=== PATIENT | male | born 1955 | race Caucasian/White ===

== ENCOUNTER → 2017-08-08 15:00 | Outpatient (CLI) | payer BC, SELFPAY ==
[2017-08-08 17:33] LABS: Mean Corp Hgb Conc 33.3 g/gl (32-36); Mean Corpuscular Volume 90.1 fL (80-94); Mean Platelet Vol. 10.7 fl (6.2-12.0); Platelet Count 244 K/mm3 (150-450); RBC Distribution Width CV 13.1 % (11.6-14.6); RBC Distribution Width SD 42.8 fl (35.1-43.9); Red Blood Count 4.66 M/mm3 (4.6-6.2); White Blood Count 5.8 K/mm3 (4.4-11.0)
[2017-08-08 17:58] LABS: ALB/GLOB Ratio 1.3 RATIO (0.9-2.4); AST(SGOT) 16 U/L (15-37); Alanine Aminotransfer ALT/SGPT 12 U/L (16-61); Albumin, Serum 3.9 g/dL (3.2-5.0); Alkaline Phosphatase 55 U/L (45-117); Anion Gap 7 (5-15); BUN 18 mg/dL (7-18); BUN/Creat Ratio 15.5 RATIO (10-20); Chloride 106 mmol/L (98-107); Creatinine, Serum 1.16 mg/dL (0.70-1.30); EST Glomerular Filtration Rate 68 mL/min (>60); Est Glom Filt Rate - Afr Amer 82 mL/min (>60); Globulin 2.9 g/dL (2.2-4.2); Glucose 91 mg/dL (74-106); Potassium 4.2 mmol/L (3.5-5.1); Protein, Total 6.8 g/dL (6.4-8.2); Sodium Level 139 mmol/L (136-145)
[2017-08-08 18:03] LABS: Scan Indicated on CBC? Y/N NO
== END ==
PROVIDERS: Family Provider Nurse Practitioner; PCP Nurse Practitioner
DX: G47.419 Narcolepsy without cataplexy (principal); Z79.899 Other long term (current) drug therapy
CPT/HCPCS: 36415; 80053; 85027

== ENCOUNTER 2018-04-03 19:12 | Emergency (ER) | payer BC, SELFPAY ==
--- NOTE | 2018-04-03 18:56 | RAD_ITS ---
STUDY: X-RAY - UNILATERAL RIBS ( LEFT ) WITH CHEST REASON FOR EXAM: Male, 63 years old. Trauma. Left-sided pain. TECHNIQUE - RIBS: 4 view(s) of the ribs. TECHNIQUE - CHEST: Frontal view COMPARISON: 03/29/2016 FINDINGS - RIBS: There are no displaced rib fractures identified. FINDINGS - CHEST: The lungs are clear. There are no pleural effusions. There is no pneumothorax. The heart is normal in size. RAD/Ribs Uni Min 3V w/PA Chest IMPRESSION: RIBS: No displaced rib fracture identified. CHEST: Clear lungs. Electronically Signed: Je Trent, at 20:38 EST Tel , Service support ,
[2018-04-03 19:13] VITALS: BP 119/88; PULSE 80; RESP 16; TEMP 37; O2SAT 99; BMI 28.8
--- NOTE | 2018-04-03 19:51 | RAD_ITS ---
STUDY: X-RAY - LEFT SHOULDER REASON FOR EXAM: Male, 63 years old. Trauma. Pain. TECHNIQUE: 4 view(s) of the shoulder. COMPARISON: None. FINDINGS: There is widening of the coracoclavicular distance, measuring 2.2 cm, and widening of the acromioclavicular distance, measuring 9 mm. There is no evidence of fracture in the left shoulder. There are mild degenerative changes. There are no radiodense foreign bodies. RAD/Shoulder min 2 Views IMPRESSION: Widening of the coracoclavicular an acromioclavicular distance, consistent with shoulder separation. No fracture in the left shoulder. Mild degenerative changes. Electronically Signed: Je Trent, at 20:43 EST Tel , Service support ,
--- NOTE | 2018-04-03 20:16 | ED.VISSUMM ---
- ER Visit Summary Date of Service: 04/03/18 Chief Complaint: Left shoulder injury History of Present Illness: The patient is a 63 M who was skiing today when he crashed and injured his left shoulder. He points to the top and posterior aspect of his left shoulder as well as over the left chest wall. He denies shortness of breath. He denies head injury or neck pain. Physical Examination: Vital signs unremarkable. Patient sitting upright in bed no acute distress. Head neck examination is unremarkable. No C-spine tenderness. Heart is regular rate and rhythm. Lung sounds are clear. Abdomen is soft nontender. Extremity examination was reproducible tenderness over the left shoulder, worse along the AC joint. He has increased pain with left upper extremity movement. He has strong distal pulses with no focal tenderness over the mid humerus or distal. Test Results: Rib series with chest x-ray shows no displaced rib fractures. Lungs are clear. Left shoulder x-rays reveal widening of the coracoclavicular and the acromioclavicular distance consistent with AC separation. No evidence of fracture. Emergency Department Course and Treatment: Test results are discussed with the patient. He is placed in a sling. He wishes only to take Aleve at home for pain. He will follow-up with orthopedics. Treatment Plan: [] Disposition: Discharge Impression: Left AC joint separation This note was generated with [employer] dictation software. It may contain incorrect words, spelling, and punctuation that were not noted in review of the chart prior to signing ED Disposition - Plan for ED Patient: Disposition: Home or Assisted Living Chief Complaint: Upper Extremity Injury Instructions: ED Sprain AC Joint Referrals: René Hernandez MD [STAFF PHYSICIAN] - 1-2 Weeks Cecille Rodriguez NP-C [Primary Care Provider] -
--- NOTE | 2018-04-03 20:16 | ED.DEP ---
ED Disposition - Plan for ED Patient: Disposition: Home or Assisted Living Chief Complaint: Upper Extremity Injury Instructions: ED Sprain AC Joint Referrals: Cecille Rodriguez NP-C [Primary Care Provider] - René Hernandez MD [STAFF PHYSICIAN] - 1-2 Weeks
[2018-04-03 20:51] VITALS: PULSE 81; RESP 20
--- OUTSIDE RECORDS SUMMARY | 2018-06-05 23:40 | XMS RPT_ITS ---
:1955 Author Organization [facility] Care Team Providers Name Role Phone Cecille Rodriguez Primary Care Unavailable Jenise Greco Attending Unavailable DORIS ZHAO Attending Unavailable DORIS ZHAO Referring Unavailable [facility] Primary [facility] Unavailable PROBLEMS PROBLEMS DATE TYPE CONDITION / CODE ATTENDING STATUS SOURCE 08/08/2017 Unknown Z79.899 - Other DORIS ZHAO Active [facility] (current) [facility] Hospital therapy / Repository Z79.899(ICD-10) PROCEDURES PROCEDURES No Procedure Records FoundRESULTS RESULTS EMERGENCY DEPARTMENT Observed: 04/04/2018 Status: F Source: [place] SUMMARY 2:44 PM [facility] REPOSITORY [facility] Medical Records Department [address] [place] [address] Emergency Department Summary 04/03/182015 MR#: [id number] Acct: [id number] Name: TERESA GARSIA Rep #: [id number] : 1955 63 From: Jenise Greco MD PCP: Cecille Rodriguez NP Status: DEP ER - ER Visit Summary Date of Service: 04/03/18 Chief Complaint: Left shoulder injury History of Present Illness: The patient is a 63 M who was skiing today when he crashed and injured his left shoulder. He points to the top and posterior aspect of his left shoulder as well as over the left chest wall. He denies shortness of breath. He denies head injury or neck pain. Physical Examination: Vital signs unremarkable. Patient sitting upright in bed no acute distress. Head neck examination is unremarkable. No C-spine tenderness. Heart is regular rate and rhythm. Lung sounds are clear. Abdomen is soft nontender. Extremity examination was reproducible tenderness over the left shoulder, worse along the AC joint. He has increased pain with left upper extremity movement. He has strong distal pulses with no focal tenderness over the mid humerus or distal. Test Results: Rib series with chest x-ray shows no displaced rib fractures. Lungs are clear. Left shoulder x-rays reveal widening of the coracoclavicular and the acromioclavicular distance consistent with AC separation. No evidence of fracture. Emergency Department Course and Treatment: Test results are discussed with the patient. He is placed in a sling. He wishes only to take Aleve at home for pain. He will follow-up with orthopedics. Treatment Plan: [] Disposition: Discharge Impression: Left AC joint separation This note was generated with [employer] dictation software. It may contain incorrect words, spelling, and punctuation that were not noted in review of the chart prior to signing ED Disposition - Plan for ED Patient: Disposition: Home or Assisted Living Chief Complaint: Upper Extremity Injury Instructions: ED Sprain AC Joint Referrals: René Hernandez MD [STAFF PHYSICIAN] - 1-2 Weeks Cecille Rodriguez NP-C [Primary Care Provider] - What to do if you have Problems For any increased pain, shortness of breath, bleeding, nausea or vomiting, chest pain, or any unexpected problems, contact your Primary Care Provider. Call [facility] ([phone]) or report to the closest Emergency Room. Call 911 if necessary. 04/04/18 1444 <Electronically signed by Jenise Greco MD> Date Jenise Greco MD Cosigner Signature (If Indicated): Date CC: Cecille Rodriguez NP DISCHARGE INSTRUCTION Observed: 04/03/2018 Status: F Source: [place] 8:17 PM [facility] REPOSITORY [facility] Medical Records Department [address] [place] [address] Discharge Instruction 04/03/182015 MR#: [id number] Acct: [id number] Name: TERESA GARSIA Rep #: [id number] : 1955 63 From: Jenise Greco MD PCP: Cecille Rodriguez NP Status: PRE ER ED Disposition - Plan for ED Patient: Disposition: Home or Assisted Living Chief Complaint: Upper Extremity Injury Instructions: ED Sprain AC Joint Referrals: Cecille Rodriguez, TOO-C [Primary Care Provider] - René Hernandez MD [STAFF PHYSICIAN] - 1-2 Weeks What to do if you have Problems For any increased pain, shortness of breath, bleeding, nausea or vomiting, chest pain, or any unexpected problems, contact your Primary Care Provider. Call [facility] ([phone]) or report to the closest Emergency Room. Call 911 if necessary. 04/03/18 2017 <Electronically signed by Jenise Greco MD> Date Jenise Greco MD Cosigner Signature (If Indicated): Date CC: Cecille Rodriguez NP RIBS UNI MIN 3V Observed: 04/03/2018 Status: F Source: [place] W/PA CHEST 7:52 PM [facility] REPOSITORY [facility] Imaging Services [address] [place] [address] Ribs Uni Min 3V w/PA Chest MR#: [id number] Acct: [id number] Name: TERESA GARSIA Rep #: [id number] : 1955 M 63 From: Je Trent MD PCP: Cecille Rodriguez NP Status: REG ER Study: Ribs Uni Min 3V w/PA Chest Date of Exam: 04/03/18 Exam# [id number] Ordering Dr: Jenise Greco MD STUDY: X-RAY - UNILATERAL RIBS ( LEFT ) WITH CHEST REASON FOR EXAM: Male, 63 years old. Trauma. Left-sided pain. TECHNIQUE - RIBS: 4 view(s) of the ribs. TECHNIQUE - CHEST: Frontal view COMPARISON: 03/29/2016 FINDINGS - RIBS: There are no displaced rib fractures identified. FINDINGS - CHEST: The lungs are clear. There are no pleural effusions. There is no pneumothorax. The heart is normal in size. RAD/Ribs Uni Min 3V w/PA Chest IMPRESSION: RIBS: No displaced rib fracture identified. CHEST: Clear lungs. Electronically Signed: Je Trent, at 20:38 EST Tel , Service support , CC: Cecille Rodriguez NP; Jenise Greco MD Housing Officer: Signed SHOULDER MIN 2 VIEWS Observed: 04/03/2018 Status: F Source: [place] 7:52 PM [facility] REPOSITORY [facility] Imaging Services [address] [place] [address] Shoulder min 2 Views MR#: [id number] Acct: [id number] Name: TERESA GARSIA Rep #: [id number] : 1955 63 From: Je Trent MD PCP: Cecille Rodriguez NP Status: REG ER Study: Shoulder min 2 Views Date of Exam: 04/03/18 Exam# [id number] Ordering Dr: Jenise Greco MD STUDY: X-RAY - LEFT SHOULDER REASON FOR EXAM: Male, 63 years old. Trauma. Pain. TECHNIQUE: 4 view(s) of the shoulder. COMPARISON: None. FINDINGS: There is widening of the coracoclavicular distance, measuring 2.2 cm, and widening of the acromioclavicular distance, measuring 9 mm. There is no evidence of fracture in the left shoulder. There are mild degenerative changes. There are no radiodense foreign bodies. RAD/Shoulder min 2 Views IMPRESSION: Widening of the coracoclavicular an acromioclavicular distance, consistent with shoulder separation. No fracture in the left shoulder. Mild degenerative changes. Electronically Signed: Je Trent, at 20:43 EST Tel , Service support , CC: Cecille Rodriguez GEOSPATIAL INFORMATION SCIENTIST; Jenise Greco MD Housing Officer: Signed COMPREHENSIVE METABOLIC Collected: 08/08/2017 Status: F Source: [place] TOBIN 3:07 PM [facility] REPOSITORY TYPE CODE TESTS RESULT OUT OF RANGE REFERENCE UNITS LAB L501.0100 74-106 mg/dL Normal GLU 91 Result Comment: Please note revised GLUCOSE reference range effective 2017. LAB L501.1000 7-18 mg/dL Normal BUN 18 LAB L501.1100 0.70-1.30 mg/dL Normal CREAT,SERUM 1.16 Result Comment: The validity of the calculated GFR AND GFRAA in patients over 70 years has not been determined. Clinical correlation is essential. LAB L501.1110 >60 mL/min Normal EST GFR 68 Result Comment: Non- GFR Calc LAB L501.1115 >60 mL/min Normal EST GFR - AA 82 Result Comment: GFR Calc LAB L501.1300 10-20 RATIO Normal BUN/CRE 15.5 LAB L501.1500 6.4-8.2 g/dL T Normal PROT 6.8 LAB L501.1800 3.2-5.0 g/dL Normal ALB 3.9 LAB L501.1950 2.2-4.2 g/dL Normal GLOB 2.9 LAB L501.2000 0.9-2.4 RATIO Normal A/G 1.3 LAB L501.2200 8.5-10.1 mg/dL CA Normal 9.0 LAB L501.4100 15-37 U/L Normal AST 16 LAB L501.4305 45-117 U/L Normal ALK P 55 LAB L501.4405 16-61 U/L Low ALT 12 LAB L501.4600 0.20-1.00 mg/dL T Normal BILI 0.70 LAB L501.5300 136-145 mmol/L NA Normal 139 LAB L501.5600 3.5-5.1 mmol/L K Normal 4.2 LAB L501.5900 98-107 mmol/L CL Normal 106 LAB L501.6100 21.0-32.0 mmol/L Normal CO2 26.0 LAB L501.6200 5-15 Normal GAP 7 Performed By: #### L500.4050 #### [facility] [address] [place], [address] CBC-COMPLETE BLOOD CNT Collected: 08/08/2017 Status: F Source: [place] NO DIFF 3:07 PM [facility] REPOSITORY TYPE CODE TESTS RESULT OUT OF RANGE REFERENCE UNITS LAB L100.1000 4.4-11.0 K/mm3 Normal WBC 5.8 LAB L100.1200 4.6-6.2 M/mm3 Normal RBC 4.66 LAB L100.1300 13.0-16.5 g/dl Normal HGB 14.0 LAB L100.1400 40-54 % Normal HCT 42.0 LAB L100.1500 80-94 fL Normal MCV 90.1 LAB L100.1600 27.0-32.0 pg Normal MCH 30.0 LAB L100.1700 32-36 g/gl Normal MCHC 33.3 LAB L100.1810 11.6-14.6 % Normal RDW CV 13.1 LAB L100.1820 35.1-43.9 fl Normal RDW SD 42.8 LAB L100.1900 150-450 K/mm3 Normal PLT 244 LAB L100.2000 6.2-12.0 fl Normal MPV 10.7 Performed By: #### L100.0500 #### [facility] [address] [place], [place], [id number] ALLERGIES ALLERGIES DATE TYPE / CODE NAME / CODE REACTION SEVERITY SOURCE 04/03/2018 Drug No Known Unknown Den[facility] Allergy/4160 Allergies/F00 Hospital 77793(SNOMED [id number](RXNOR Repository CT) M) ENCOUNTERS ENCOUNTERS ADMIT/DISCHARGE ACCOUNT ADMITTING ENCOUNTER LOCATION SOURCE NUMBER CLASS 04/03/2018/ [id number] Emergency [place] Deniz [address] [facility] ing:ED Repository 08/08/2017 [id number] Ambulatory Deniz Deniz [address] [facility] ing:MTLAB Repository PAYERS PAYERS ENCOUNTER GUARANTOR PAYER SUBSCRIBER SOURCE 04/03/2018 TERESA J Primary TERESA J Deniz [id number] [place] Insurance:ANTHEMPolic SMITHDOB[facility] Number: [id number] [address]Obu: 330 [id number] Repository [phone] () Date:6009-09-36[id number] [place] [address]UP: 04/03/2018 Secondary NOT GIVENUNK [place] Insurance:SELF PAY [facility] Number: Effective Repository Date:2018-04-03 08/08/2017 Teresa J Primary Teresa J Deniz [id number] [place] Insurance:ANTHEMPolic [facility] Number: [id number] [address]Kop: [id number] Repository [phone] Date:[id number] ) [place], [place] [address]BY: 08/08/2017 Secondary NOT GIVENUNK [place] Insurance:SELF PAY [facility] Number: Effective Repository Date:2017-08-08
== END 2018-04-03 20:52 | disposition home or self-care (01) ==
LOC: ED 20:28
PROVIDERS: Emergency Provider Emergency Medicine; Family Provider Nurse Practitioner; PCP Nurse Practitioner
DX: S43.102A Unspecified dislocation of left acromioclavicular joint, initial encounter (principal); R07.9 Chest pain, unspecified; W19.XXXA Unspecified fall, initial encounter; Y93.23 Activity, snow (alpine) (downhill) skiing, snowboarding, sledding, tobogganing and snow tubing; Y92.9 Unspecified place or not applicable
CPT/HCPCS: 71101; 73030; 99283

== ENCOUNTER 2019-04-13 17:55 | Emergency (ER) | payer BC, SELFPAY ==
[2019-04-13 17:57] VITALS: BP 127/79; PULSE 54; RESP 16; TEMP 37; O2SAT 98; BMI 27.8
--- NOTE | 2019-04-13 18:00 | RAD_ITS ---
STUDY: X-RAY - LEFT HAND REASON FOR EXAM: Male, 64 years old. VISIBLE OPEN FRACTURE OF LEFT PINKY FINGER TECHNIQUE: 3 view(s) of the hand. COMPARISON: None. FINDINGS: Normal radiocarpal articulation. Normal distal radioulnar joint. Normal visualized carpal bones. Normal carpal articulations Normal carpometacarpal articulation of the thumb. Normal second through fifth carpometacarpal joints. Normal metacarpi. Normal metacarpophalangeal joint of the thumb. Normal interphalangeal joint of the thumb. Normal proximal and distal phalanges of the thumb. Normal metacarpophalangeal joints of the second through fifth fingers. Normal proximal and distal interphalangeal joints of the second through fifth fingers. There is a comminuted mildly displaced fracture of the fifth proximal phalanx foreshortening and overlying skin defect. The soft tissue structures are otherwise unremarkable. RAD/Hand Min 3 Views IMPRESSION: Comminuted displaced fracture of the fifth proximal phalanx. Electronically Signed: Shashank Gaviria MD ([place]) at 18:21 EST , Service support ,
[2019-04-13 18:49] VITALS: PULSE 54; RESP 17; O2SAT 98
[2019-04-13 19:05] VITALS: BP 126/80; PULSE 65; RESP 16; O2SAT 96
--- NOTE | 2019-04-13 19:36 | ED.RN ---
SHAKIR HOROWITZ CONTACTED FOR DR BETH
--- NOTE | 2019-04-13 19:37 | ED.VISSUMM ---
- ER Visit Summary Date of Service: 04/13/19 Chief Complaint: Small finger injury History of Present Illness: The patient is a 64 M past medical history of narcolepsy. Prior renal resection. Patient states that he was making wood bowl on his wood cutting piece of machinery. His hand slipped and either the bowl of the machine lacerated and injured the proximal aspect of his left small finger. This occurred around 530. He denies any other injuries. He is right-hand dominant. His tetanus is up-to-date about 6 years ago. Physical Examination: Older male no acute distress vital signs are stable afebrile. H EENT exam unremarkable. Lungs clear to auscultation. Heart regular rhythm no murmur. Abdomen soft nontender. Right upper and lower extremities are unremarkable. His left hand small finger proximal phalanx around the MCP he has a laceration both medially and laterally at the base of the left small finger. The finger is flexed. He is unable to extend it so is an extensor tendon laceration. There may be involvement to even the flexor tendon. He has very limited range of motion of the finger itself. He does have cap refill. Currently there is no active bleeding. Consistent with the x-ray this is an open comminuted fracture. He does have cap refill. He has limited touch sensation on the side. Side of the pinky. He does have pinprick sensation on the ulnar side. Concern is for digital nerve injury also. Test Results: Left hand x-ray shows a comminuted fracture of the proximal phalanx of the small finger. This is an open fracture. I do not see any foreign bodies. 3 views were obtained. Read by myself. Emergency Department Course and Treatment: IV started. Morphine for pain. Zofran to prevent nausea. Ancef for the open fracture. Treatment Plan: Discussed with the patient and family. His 1 daughter is a nurse at [employer]. This is a complex injury of his left proximal small finger. He has an open comminuted fracture with extensor and possibly flexor tendon lacerations. Also possible nerve injury. This needs specialized care specifically hand surgeon. [facility] [employer] [facility] transfer line is being contacted. Disposition: Transfer to [facility]. Family is been taking recommended vehicle. Impression: Acute left small finger open comminuted fracture of the proximal phalanx Extensor tendon laceration Rule out flexor tendon laceration Suspect digital nerve injury of the small finger This note was generated with [employer] dictation software. It may contain incorrect words, spelling, and punctuation that were not noted in review of the chart prior to signing ED Disposition - Plan for ED Patient: Referrals: Care Physician,No Primary [Primary Care Provider] -
[2019-04-13] MEDS: Ondansetron 4 MG/2 ML Vial IV (19:39)
[2019-04-13] MEDS: morphine 8 MG/ML Syringe 6 MG IV (19:39)
[2019-04-13] MEDS: Cefazolin 1 GM/50 ML BAG IV (20:01)
== END 2019-04-13 20:40 | disposition short-term general hospital (02) ==
PROVIDERS: Emergency Provider Emergency Medicine
DX: S62.617B Displaced fracture of proximal phalanx of left little finger, initial encounter for open fracture (principal); S66.327A Laceration of extensor muscle, fascia and tendon of left little finger at wrist and hand level, initial encounter; W31.89XA Contact with other specified machinery, initial encounter; Y93.9 Activity, unspecified; Y92.9 Unspecified place or not applicable; Y99.9 Unspecified external cause status; G47.419 Narcolepsy without cataplexy; Z79.899 Other long term (current) drug therapy
CPT/HCPCS: 73130; 96365; 96375; 99284; J7050; A4216; J2405

== ENCOUNTER → 2019-08-29 06:42 | Outpatient (CLI) | payer BC, SELFPAY ==
[2019-08-29 08:01] LABS: Hematocrit 46.9 % (40-54); Hemoglobin 15.1 g/dL (13.0-16.5); Mean Corp Hgb Conc 32.2 g/dL (32-36); Mean Corpuscular Hgb 30.9 pg (27.0-32.0); Mean Corpuscular Volume 95.9 fL (80-94); Mean Platelet Vol. 10.5 fl (6.2-12.0); Platelet Count 272 K/mm3 (150-450); RBC Distribution Width CV 13.5 % (11.6-14.6); RBC Distribution Width SD 47.8 fl (35.1-43.9); Red Blood Count 4.89 M/mm3 (4.6-6.2); White Blood Count 4.8 K/mm3 (4.4-11.0)
[2019-08-29 08:34] LABS: ALB/GLOB Ratio 1.1 RATIO (0.9-2.4); AST(SGOT) 15 U/L (15-37); Alanine Aminotransfer ALT/SGPT 12 U/L (16-61); Albumin, Serum 3.6 g/dL (3.2-5.0); Alkaline Phosphatase 59 U/L (45-117); Anion Gap 6 (5-15); BUN 19 mg/dL (7-18); Calcium,Total 9.3 mg/dL (8.5-10.1); Chloride 104 mmol/L (98-107); Creatinine, Serum 1.19 mg/dL (0.70-1.30); EST Glomerular Filtration Rate 66 mL/min (>60); Est Glom Filt Rate - Afr Amer 79 mL/min (>60); Globulin 3.3 g/dL (2.2-4.2); Glucose 69 mg/dL (74-106); Potassium 4.2 mmol/L (3.5-5.1); Protein, Total 6.9 g/dL (6.4-8.2); Sodium Level 140 mmol/L (136-145)
== END ==
PROVIDERS: PCP Nurse Practitioner Primary Care
DX: G47.419 Narcolepsy without cataplexy (principal); Z79.899 Other long term (current) drug therapy
CPT/HCPCS: 36415; 80053; 85027

== ENCOUNTER 2022-09-02 10:31 | Emergency (ER) | payer MEDICARE, BC, SELFPAY ==
[2022-09-02 10:32] VITALS: BP 80/61; PULSE 85; RESP 14; TEMP 35.6; O2SAT 98
[2022-09-02 10:37] VITALS: BMI 26.6
[2022-09-02 10:40] VITALS: BP 107/68
--- NOTE | 2022-09-02 11:02 | EX.ED.GENINJ ---
HPI History of Present Illness Chief Complaint: Laceration Informant: patient Onset/Context/Timing Onset: Today Narrative Narrative: Patient presents with right thumb laceration from table saw. He is right-hand dominant. Last tetanus was less than 5 years ago. [facility] Medical History Laceration Home Medications glucosamine HCl 500 mg-msm 83 mg-chondroitin 400 mg tablet 2 ea PO DAILY 04/03/18 [History Last Taken Unknown] modafinil 200 mg tablet 200 mg PO DAILY 04/03/18 [History Last Taken Unknown] Lactobacillus acidophilus 10 billion cell capsule 1 ea PO DAILY 04/13/19 [History Last Taken Unknown] loratadine 10 mg tablet 10 mg PO DAILY 04/13/19 [History Last Taken Unknown] cephalexin 500 mg capsule 500 mg PO Q6 #40 CAPSULES 09/02/22 [Rx Last Taken Unknown] hydrocodone-acetaminophen 5-325mg 5mg-325mg 1 tab PO Q6H PRN PRN Pain 3 days #12 TABLETS 09/02/22 [Rx Last Taken Unknown] Allergy/AdvReac Type Severity Reaction Status Date / Time No Known Allergies Allergy Verified 09/02/22 10:32 Social History Smoking Status: Never smoker ROS ROS ED Constitutional Constitutional ED: Denies chills or fever(s) Eyes Eyes: Denies discharge from eye(s) ENT ENT ED: Denies discharge from eye(s), rhinorrhea or sore throat Cardiovascular Cardiovascular: Denies chest pain or palpitations Respiratory/Chest Respiratory/Chest: Denies cough or dyspnea Gastrointestinal Gastrointestinal: Denies abdominal pain, nausea or vomiting Genitourinary Genitourinary ED: Denies dysuria Musculoskeletal Musculoskeletal: Reports extremity pain; Denies back pain Integumentary Denies Abrasions or rash Neurologic Neurologic: Denies headache(s) or weakness Psychiatric Psychiatric: Denies anxiety or depression Allergic/Immunologic Allergic/Immunologic ED: Denies lip swelling or urticaria EXAM Physical Exam Const Vital Signs: 09/02/22 10:32 09/02/22 10:40 Temperature 96.1 F L Temperature Source Temporal Pulse Rate 85 Respiratory Rate 14 Blood Pressure 80/61 L 107/68 Blood Pressure Mean 67 81 Pulse Ox 98 Oxygen Delivery Method Room Air Positive well nourished and well developed General Appearance ED: well developed HEENT Reports normocephalic and head/scalp atraumatic Eyes PERRL and EOMs intact bilaterally Neck supple Chest Wall inspection of chest normal and palpation of chest normal Resp normal respiratory effort and clear to auscultation bilaterally Cardio regular rate and regular rhythm GI Palpation: soft Extremity Extremity Narrative: 8 cm laceration along the extensor surface of the right thumb that wraps over the top of the thumb and onto the flexor surface. Patient is able to fully flex and extend his digit. He has good cap refill and sensation distally. Laceration does cross the side of the nail but does not cut through the nail itself. Neuro oriented x3 and no sensory deficits noted Sensorium / Orientation: alert Motor Exam: strength 5/5 throughout Psych Mood & Affect: anxious MDM MDM MDM Narrative Medical decision making narrative: Digital block initially performed for pain control. A 50-50 mix of lidocaine and Marcaine is used and 6 cc is used in a digital block format. Following this right thumb x-ray is obtained. Radiography Diagnostic Testing: Clinical Impression(s) from Imaging Studies Finger X-Ray 09/02/22 11:12 IMPRESSION: Intra-articular fractures of the proximal and distal phalanges of the right thumb. Electronically Signed: Saniya Wagoner MD at 12:02 EDT , Treatment and Re-Evaluation Narrative: Right thumb x-ray per my interpretation does reveal nondisplaced fractures. Gas noted in the soft tissue secondary to the lacerations. Wound is cleansed and irrigated. A total of 16 sutures is placed with 4-0 nylon. Gauze dressing will be applied and he will be placed in a Velcro thumb spica splint. This is some he can carefully remove it and keep the wounds clean. He will follow-up with orthopedics next week for suture removal and repeat x-rays. Prescription for Sassafras and Keflex sent to the pharmacy for him. Discharge Plan Triage Chief Complaint: Laceration ED Provider: Jenise Greco Dx/Rx/DC Orders Clinical Impression: Laceration of thumb, Fracture of thumb, right open Instructions: ED Open Hand Fracture (Adult), ED Fracture, Thumb Prescriptions: New hydrocodone-acetaminophen 5-325 mg tablet 1 tab PO Q6H PRN PRN (Reason: Pain) 3 Days Qty: 12 0RF cephalexin 500 mg capsule 500 mg PO Q6 Qty: 40 0RF No Action modafinil 200 MG tablet 200 mg PO DAILY glucosamine [id number] 1 EACH tablet 2 ea PO DAILY loratadine 10 MG tablet 10 mg PO DAILY Lactobacillus acidophilus 1 EACH capsule 1 ea PO DAILY Primary Care Provider: Care Physician,No Primary Referrals: Loco Beard DO [Med Staff - Active Staff] - 1 Week Vinay Rothman ANIMAL PATHOLOGIST, ANIMAL PATHOLOGIST-C [Non-Staff] - Disposition Disposition: Home, Self Care
[2022-09-02] MEDS: Lidocaine 1% (20 ml mdv) 20 ML Vial INFILT (11:12)
[2022-09-02] MEDS: Bupivacaine Mpf 0.5% 30 ML VIAL INFILT (11:12)
--- NOTE | 2022-09-02 11:12 | RAD_ITS ---
HISTORY: injury. TECHNIQUE: XR Fingers Min 2 Views. COMPARISON: None. FINDINGS: BONES : Comminuted intra-articular fractures at the head of the first proximal phalanx and base of the first distal phalanx with a dorsal avulsion noted. Bone island of the first proximal phalanx. JOINTS: No dislocation. Mild degenerative change. SOFT TISSUES: Soft tissue injury of the thumb with soft tissue swelling and laceration. RAD/Finger(s) Min 2 Views IMPRESSION: Intra-articular fractures of the proximal and distal phalanges of the right thumb. Electronically Signed: Saniya Wagoner MD at 12:02 EDT ,
[2022-09-02] MEDS: Cephalexin 250 MG Capsule 500 MG PO (12:34)
== END 2022-09-02 12:46 | disposition home or self-care (01) ==
PROVIDERS: Emergency Provider Emergency Medicine; Visit Provider Emergency Medicine
DX: S62.514B Nondisplaced fracture of proximal phalanx of right thumb, initial encounter for open fracture (principal); S62.524B Nondisplaced fracture of distal phalanx of right thumb, initial encounter for open fracture; W31.2XXA Contact with powered woodworking and forming machines, initial encounter
CPT/HCPCS: 12004; 73140; 99284